=== PATIENT | female | born 1960 | race Caucasian/White ===

== ENCOUNTER 2016-07-30 20:59 | Emergency (ER) | payer OTHER ==
--- NOTE | 2016-07-30 22:50 | DIAGNOSTIC IMAGING REPORT ---
PROCEDURE: XR CHEST 2 VIEW INDICATION: SHORTNESS OF BREATH TECHNIQUE: PA and lateral views. COMPARISON: Para chest x-ray on 09/03/2012. FINDINGS: Lungs are clear. Heart and mediastinum are normal. Thorax is normal. IMPRESSION: 1. Negative chest.
--- NOTE | 2016-07-30 23:09 | ED NURSING NOTES ---
Clinical Report - Nurses [facility] [address] [place] [address] 07/30/2016 21:00 Patient: CORNELIA PIERCE TRIAGE Triage time 21:Jul 30 2016. Acuity: LEVEL 3. Chief Complaint: "ASTHMA ATTACK" and WHEEZING. 21:07 07/30/16. SEPSIS SCREEN: Sepsis Screen: negative. Negative (no infection suspected/documented). --21:07 Nesha Westbrook 21:02 07/30/16. BP: 166/87. HR: 78. RR: 20. O2 saturation: 96% on room air. Temp: 97.9 F (oral). --21:07 Nesha Westbrook 00:28 07/31/16. Pain level now: 0/10. --00:28 Nesha Westbrook. Weight: 72.5 kg stated. Height/Length: 68 inches Per Patient. BMI: 24.3. --21:04 Nesha Westbrook. Medications Atrovent HFA Inhalation. --21:03 Nesha Westbrook. Medication/allergy information source: the patient. --21:07 Nesha Westbrook. Allergies No Known Drug Allergy. --21:03 Nesha Westbrook. History Arrived by EMS. Historian: patient. Primary physician (none). This started just prior to arrival. ( Patient states she has been having come cough and fever over the last three days. She states she has been using her inhaler which she normally doesn't have to use regularly. She reports difficulty breathing tonight at work that was sudden onset.). She has had fever and chills. She has had a cough productive of green sputum. Treatment QUARTER INSPECTOR: None. See EMS report. EMS treatment QUARTER INSPECTOR verbally communicated and report reviewed. See report. BP: 138 / 82. HR: 76. RR: 22 regular. O2 saturation: 97 room air. PAST MEDICAL HX: Immunizations: up-to-date. The patient has had a hysterectomy. SOCIAL HX: Heavy tobacco smoker (cigarette)- 1 pack per day. Alcohol use; consumes three beers a day. No drug use. No infectious disease exposure. ABUSE ASSESSMENT: No report of abuse. FALL RISK ASSESSMENT: Fall risk assessment completed. No fall risk identified. NUTRITIONAL RISK ASSESSMENT: The nutritional risk assessment revealed no deficiencies. FUNCTIONAL ASSESSMENT: Functional assessment: no impairments noted. LEARNING NEEDS ASSESSMENT: The learning needs assessment revealed no barriers. SKIN INTEGRITY ASSESSMENT: Skin integrity risk assessment completed. No skin integrity risk identified. --21:07 Nesha Westbrook. PROBLEMS: Bronchospasm. Dyspnea. COPD - Chronic Obstructive Pulmonary Disease. Bronchitis. Pneumonia. --21:04 Nesha Westbrook. ADDITIONAL SURGERIES: 3 right arm. 3 right ear. Hysterectomy. Oophorectomy. Salpingectomy. Shoulder Surgery. Tonsillectomy. Tubal Ligation. --21:04 Nesha Westbrook. Interventions ID band on patient. To treatment room. --21:07 Nesha Westbrook. PHYSICAL ASSESSMENT To room via stretcher. GENERAL / NEURO / PSYCH: Alert. Oriented X 4. Appears in no acute distress. HEENT: Mucous membranes are pink. RESPIRATORY: Mild respiratory distress. The patient can speak in full sentences. Cough. Expiratory wheezes present. SKIN: Skin is warm and dry. --21:08 Nesha Westbrook. NURSING PROGRESS NOTES The initial plan of care for this patient has been created This plan of care was discussed with the patient. Oxygen administered by nasal cannula at 2 liters. clinical research monitor, pulse oximeter and NIBP monitor placed on patient; monitor alarms on. Patient gowned. Head of bed elevated. Reassurance given to the patient. Two patient identifiers checked. Call light placed in reach. Side rails up x 1. Bed placed in lowest position. Brakes of bed on. Patient ready for evaluation- chart flagged. --21:08 Nesha Westbrook ( RT notified). --21:11 Nesha Westbrook ( Provider at bedside discussing plan of care with patient). --21:26 Nesha Westbrook Patient transported to radiology by stretcher with [employer]. (21:38 Jul 30 2016). --21:39 Nesha Westbrook 21:47 07/30/2016 Duoneb (Ipratropium-Albuterol) Neb TX Nebulizer 1 unit dose given. Given by the respiratory therapist. Allergies verified and confirmed 5 rights. --21:47 Nesha Westbrook 21:47 07/30/2016 Albuterol Neb TX Nebulizer 1 unit dose given. Given by the respiratory therapist. Allergies verified and confirmed 5 rights. --21:47 Nesha Westbrook 21:48 07/30/2016 Site #1 started via IV in the left antecubital space with an 20g angiocath, with aseptic technique and good blood return; one attempt. Blood drawn: rainbow set. Labeled in the presence of the patient and sent to the lab. Saline lock flushed with 10 mL saline. --21:53 Nesha Westbrook 21:48 07/30/2016 Started bag #1 1000 mL IV Fluids IV NS (Saline); at 1000 mL/hr over 1 hour(s) via site #1 via IV pump. Allergies verified and confirmed 5 rights. IV patency established. IV site checked: no pain, redness, or swelling. IV flushed thoroughly pre- and post-medication administration. --21:53 Nesha Westbrook 21:54 07/30/2016 Decadron IVP 20 mg given over 2 minute(s) via site #1. Allergies verified and confirmed 5 rights. IV patency established. IV site checked: no pain, redness, or swelling. IV flushed thoroughly pre- and post-medication administration. IVP given by RN. --21:54 Nesha Westbrook 21:54 07/30/16. BP: 120/67. HR: 73. RR: 20. O2 saturation: 99% on room air. --21:55 Nesha Westbrook ( Patient assisted up to restroom. Patient has some shortness of breath with ambulation but states she does feel better after her breathing treatments). --22:20 Nesha Westbrook 22:37 07/30/2016 Started 2 gm of Rocephin (CefTRIAXone Sodium) IVPB in bag #1 50 mL; at 150 mL/hr over 20 minute(s) via site #1 via IV pump. Allergies verified and confirmed 5 rights. IV patency established. IV site checked: no pain, redness, or swelling. IV flushed thoroughly pre- and post-medication administration. --22:37 Nesha Westbrook 22:38 07/30/2016 Zithromax PO Tablets 500 mg given. Allergies verified and confirmed 5 rights. --22:38 Nesha Westbrook 22:52 07/30/2016 Rocephin IVPB Discontinued: bag #1 completed. Total amount infused: 50 mL. IV patency established. IV site checked: no pain, redness, or swelling. IV flushed thoroughly. --22:52 Kenny Roa R.N. 23:11 07/30/2016 IV Fluids IV NS Discontinued: bag #1 completed. Total amount infused: 1000 mL. IV patency established. IV site checked: no pain, redness, or swelling. IV flushed thoroughly. --23:11 Nesha Westbrook 00:08 07/31/2016 Site #1 removed upon discharge. Catheter intact. Bandaid applied. --00:23 Nesha Westbrook ( Patient resting quietly. Patient cleared for discharge and ready to go when family arrives to drive her.). --00:23 Nesha Westbrook. DISPOSITION / DISCHARGE Condition at departure: stable. ( Provider aware of vitals. Patient cleared for discharge. RN helping patient arrange transportation home.). --23:10 Nesha Westbrook 23:09 07/30/16. BP: 131/90. HR: 87. RR: 22. O2 saturation: 92% on room air. Temp: 98.6 F (oral). Pain level now: 0/10. --23:10 Nesha Westbrook Condition at departure: stable. No learning barriers present. Discharge instructions provided and reviewed with the patient. Reviewed medication(s) side effects, precautions, dosing and course information. Reviewed need for increased fluid intake. Work note given (No work for three days). Patient verbalized understanding. Written instructions provided in Azeri. ( Follow up with PCP in three days). The patient was discharged by the physician. She was discharged home and accompanied by family. She left the Emergency Department ambulatory and via private vehicle. Family member driving. --00:28 Nesha Westbrook 00:27 07/31/16. BP: 130/80. HR: 80. RR: 20. O2 saturation: 93% on room air. --00:28 Nesha Westbrook. Locked/Released at 07/31/2016 4:49 by Nesha Westbrook,
--- NOTE | 2016-07-30 23:09 | ED ORDER SUMMARY ---
..... Patient: CORNELIA PIERCE OrderSheet [facility] VisitID: [id number] [place] [address] 55y, F Registration Date/Time: 07/30/2016 ORDER SHEET Weight: 72.5 kg (stated) Allergies: No Known Drug Allergy GENERAL ORDERS: Chest 2V Urgent (21:07/30/2016 Marian DOMINGUEZ) (21:42 Graciela) (Ack 21:44 NHouse ER Tech1) Rapid Influenza Screen (Nasal Pharyngeal) (swab) Urgent (:07/30/2016 Marian DOMINGUEZ) (Ack 21:44 NHouse ER Tech1) (21:53 NHouse ER Tech1) MEDICATION ORDERS: DuoNeb Neb Tx 1 unit dose (NOW) (:07/30/2016 Marian DOMINGUEZ) (Ack 21:36 HSoule) (21:47 HSoule) Albuterol Neb Tx 2.5 mg (NOW) (:07/30/2016 Marian DOMINGUEZ) (Ack 21:36 HSoule) (21:47 HSoule) Zithromax PO 500 mg (NOW) (:07/30/2016 Marian DOMINGUEZ) (Ack 22:29 HSoule) (22:38 HSoule) IV FLUIDS: IV NS : initial bolus 1000 mL (1000 mL/hr), then none - (NOW) (:07/30/2016 Marian DOMINGUEZ) (Ack 21:36 HSoule) (21:53 HSoule) Decadron IV 20 mg (NOW) (:07/30/2016 Marian DOMINGUEZ) (Ack 21:36 HSoule) (21:54 HSoule) Rocephin IV 2 gm/50mL (NOW) (22:07/30/2016 Marian DOMINGUEZ) (Ack 22:29 HSoule) (22:37 HSoule) ORDER SHEET NOTES: [Electronically signed by Nesha Westbrook (04:49 07/31/2016)] [Electronically signed by Lizett Forman MD (04:32 08/06/2016)] [Electronically locked/signed by Nesha Westbrook (04:49 07/31/2016)]
--- NOTE | 2016-07-30 23:09 | ED NURSING NOTES ---
Clinical Report - Nurses [facility] [address] [place] [address] 07/30/2016 21:00 Patient: CORNELIA PIERCE TRIAGE Triage time 21:Jul 30 2016. Acuity: LEVEL 3. Chief Complaint: "ASTHMA ATTACK" and WHEEZING. 21:07 07/30/16. SEPSIS SCREEN: Sepsis Screen: negative. Negative (no infection suspected/documented). --21:07 Nesha Westbrook 21:02 07/30/16. BP: 166/87. HR: 78. RR: 20. O2 saturation: 96% on room air. Temp: 97.9 F (oral). --21:07 Nesha Westbrook 00:28 07/31/16. Pain level now: 0/10. --00:28 Nesha Westbrook. Weight: 72.5 kg stated. Height/Length: 68 inches Per Patient. BMI: 24.3. --21:04 Nesha Westbrook. Medications Atrovent HFA Inhalation. --21:03 Nesha Westbrook. Medication/allergy information source: the patient. --21:07 Nesha Westbrook. Allergies No Known Drug Allergy. --21:03 Nesha Westbrook. History Arrived by EMS. Historian: patient. Primary physician (none). This started just prior to arrival. ( Patient states she has been having come cough and fever over the last three days. She states she has been using her inhaler which she normally doesn't have to use regularly. She reports difficulty breathing tonight at work that was sudden onset.). She has had fever and chills. She has had a cough productive of green sputum. Treatment SUPPLY CHAIN ASSISTANT: None. See EMS report. EMS treatment SUPPLY CHAIN ASSISTANT verbally communicated and report reviewed. See report. BP: 138 / 82. HR: 76. RR: 22 regular. O2 saturation: 97 room air. PAST MEDICAL HX: Immunizations: up-to-date. The patient has had a hysterectomy. SOCIAL HX: Heavy tobacco smoker (cigarette)- 1 pack per day. Alcohol use; consumes three beers a day. No drug use. No infectious disease exposure. ABUSE ASSESSMENT: No report of abuse. FALL RISK ASSESSMENT: Fall risk assessment completed. No fall risk identified. NUTRITIONAL RISK ASSESSMENT: The nutritional risk assessment revealed no deficiencies. FUNCTIONAL ASSESSMENT: Functional assessment: no impairments noted. LEARNING NEEDS ASSESSMENT: The learning needs assessment revealed no barriers. SKIN INTEGRITY ASSESSMENT: Skin integrity risk assessment completed. No skin integrity risk identified. --21:07 Nesha Westbrook. PROBLEMS: Bronchospasm. Dyspnea. COPD - Chronic Obstructive Pulmonary Disease. Bronchitis. Pneumonia. --21:04 Nesha Westbrook. ADDITIONAL SURGERIES: 3 right arm. 3 right ear. Hysterectomy. Oophorectomy. Salpingectomy. Shoulder Surgery. Tonsillectomy. Tubal Ligation. --21:04 Nesha Westbrook. Interventions ID band on patient. To treatment room. --21:07 Nesha Westbrook. PHYSICAL ASSESSMENT To room via stretcher. GENERAL / NEURO / PSYCH: Alert. Oriented X 4. Appears in no acute distress. HEENT: Mucous membranes are pink. RESPIRATORY: Mild respiratory distress. The patient can speak in full sentences. Cough. Expiratory wheezes present. SKIN: Skin is warm and dry. --21:08 Nesha Westbrook. NURSING PROGRESS NOTES The initial plan of care for this patient has been created This plan of care was discussed with the patient. Oxygen administered by nasal cannula at 2 liters. fiber optic central office installer, pulse oximeter and NIBP monitor placed on patient; monitor alarms on. Patient gowned. Head of bed elevated. Reassurance given to the patient. Two patient identifiers checked. Call light placed in reach. Side rails up x 1. Bed placed in lowest position. Brakes of bed on. Patient ready for evaluation- chart flagged. --21:08 Nesha Westbrook ( RT notified). --21:11 Nesha Westbrook ( Provider at bedside discussing plan of care with patient). --21:26 Nesha Westbrook Patient transported to radiology by stretcher with [employer]. (21:38 Jul 30 2016). --21:39 Nesha Westbrook 21:47 07/30/2016 Duoneb (Ipratropium-Albuterol) Neb TX Nebulizer 1 unit dose given. Given by the respiratory therapist. Allergies verified and confirmed 5 rights. --21:47 Nesha Westbrook 21:47 07/30/2016 Albuterol Neb TX Nebulizer 1 unit dose given. Given by the respiratory therapist. Allergies verified and confirmed 5 rights. --21:47 Nesha Westbrook 21:48 07/30/2016 Site #1 started via IV in the left antecubital space with an 20g angiocath, with aseptic technique and good blood return; one attempt. Blood drawn: rainbow set. Labeled in the presence of the patient and sent to the lab. Saline lock flushed with 10 mL saline. --21:53 Nesha Westbrook 21:48 07/30/2016 Started bag #1 1000 mL IV Fluids IV NS (Saline); at 1000 mL/hr over 1 hour(s) via site #1 via IV pump. Allergies verified and confirmed 5 rights. IV patency established. IV site checked: no pain, redness, or swelling. IV flushed thoroughly pre- and post-medication administration. --21:53 Nesha Westbrook 21:54 07/30/2016 Decadron IVP 20 mg given over 2 minute(s) via site #1. Allergies verified and confirmed 5 rights. IV patency established. IV site checked: no pain, redness, or swelling. IV flushed thoroughly pre- and post-medication administration. IVP given by RN. --21:54 Nesha Westbrook 21:54 07/30/16. BP: 120/67. HR: 73. RR: 20. O2 saturation: 99% on room air. --21:55 Nesha Westbrook ( Patient assisted up to restroom. Patient has some shortness of breath with ambulation but states she does feel better after her breathing treatments). --22:20 Nesha Westbrook 22:37 07/30/2016 Started 2 gm of Rocephin (CefTRIAXone Sodium) IVPB in bag #1 50 mL; at 150 mL/hr over 20 minute(s) via site #1 via IV pump. Allergies verified and confirmed 5 rights. IV patency established. IV site checked: no pain, redness, or swelling. IV flushed thoroughly pre- and post-medication administration. --22:37 Nesha Westbrook 22:38 07/30/2016 Zithromax PO Tablets 500 mg given. Allergies verified and confirmed 5 rights. --22:38 Nesha Westbrook 22:52 07/30/2016 Rocephin IVPB Discontinued: bag #1 completed. Total amount infused: 50 mL. IV patency established. IV site checked: no pain, redness, or swelling. IV flushed thoroughly. --22:52 Kenny Roa R.N. 23:11 07/30/2016 IV Fluids IV NS Discontinued: bag #1 completed. Total amount infused: 1000 mL. IV patency established. IV site checked: no pain, redness, or swelling. IV flushed thoroughly. --23:11 Nesha Westbrook 00:08 07/31/2016 Site #1 removed upon discharge. Catheter intact. Bandaid applied. --00:23 Nesha Westbrook ( Patient resting quietly. Patient cleared for discharge and ready to go when family arrives to drive her.). --00:23 Nesha Westbrook. DISPOSITION / DISCHARGE Condition at departure: stable. ( Provider aware of vitals. Patient cleared for discharge. RN helping patient arrange transportation home.). --23:10 Nesha Westbrook 23:09 07/30/16. BP: 131/90. HR: 87. RR: 22. O2 saturation: 92% on room air. Temp: 98.6 F (oral). Pain level now: 0/10. --23:10 Nesha Westbrook Condition at departure: stable. No learning barriers present. Discharge instructions provided and reviewed with the patient. Reviewed medication(s) side effects, precautions, dosing and course information. Reviewed need for increased fluid intake. Work note given (No work for three days). Patient verbalized understanding. Written instructions provided in Khmer. ( Follow up with PCP in three days). The patient was discharged by the physician. She was discharged home and accompanied by family. She left the Emergency Department ambulatory and via private vehicle. Family member driving. --00:28 Nesha Westbrook 00:27 07/31/16. BP: 130/80. HR: 80. RR: 20. O2 saturation: 93% on room air. --00:28 Nesha Westbrook. Locked/Released at 07/31/2016 4:49 by Nesha Westbrook,
--- NOTE | 2016-07-30 23:09 | ED CLINICAL REPORT ---
Clinical Report - Physicians/Mid Levels [facility] [address] [place] [address] 07/30/2016 21:00 Patient: CORNELIA PIERCE Time Seen: 21:20. Arrived- By private vehicle. Historian- patient. HISTORY OF PRESENT ILLNESS Chief Complaint: DYSPNEA and HISTORY OF ASTHMA. This started today and is still present. The dyspnea is described as moderate and is worsened by exertion and cough and is improved by rest. The patient has had sputum production, a cough, fever, wheezing and chills. She has had dyspnea on exertion. No sweating episodes, chest pain or discomfort, calf pain or foot swelling. No anxiety, dizziness, tingling, numbness or palpitations. Similar symptoms previously: Recent medical care: Not recently seen/assessed. REVIEW OF SYSTEMS The patient has had a nasal discharge and a sore throat but not had weight loss. No muscle aches, eye irritation, sinus drainage, nausea or vomiting. No abdominal pain, diarrhea, headache, fainting episodes or blurred vision. No difficulty with urination, excessive urination, skin rash, enlarged lymph nodes or joint pain. All systems otherwise negative, except as recorded above. PAST HISTORY Problems: Immunizations. COPD - Chronic Obstructive Pulmonary Disease. Additional Surgeries: 3 right arm. 3 right ear. Hysterectomy. Oophorectomy. Salpingectomy. Shoulder Surgery. Tonsillectomy. Tubal Ligation. Medications: Atrovent HFA Inhalation. Allergies: No Known Drug Allergy. SOCIAL HISTORY Smoker- current status unknown. Alcohol use. No drug use. ADDITIONAL NOTES The nursing notes have been reviewed. PHYSICAL EXAM Vital Signs: 07/30/2016 21:02 BP: 166/87. HR: 78. RR: 20. O2 saturation: 96%. Temp: 97.9 F. Have been reviewed. Appearance: Alert. Patient in mild distress. Eyes: Pupils equal, round and reactive to light. Eyes normal inspection. ENT: Nose normal. Neck: Normal inspection. Neck supple. CVS: Normal heart rate and rhythm. Heart sounds normal. Pulses normal. Respiratory: Mild respiratory distress. Mildly prolonged expirations. Moderately decreased air movement diffusely over both lungs. Expiratory moderate bilateral wheezes diffusely. Abdomen: Soft and nontender. Back: Normal inspection. Skin: Skin warm and dry. Normal skin color. No rash. Normal skin turgor. Extremities: Extremities exhibit normal ROM. No lower extremity edema. Neuro: Oriented X 3. No motor deficit. No sensory deficit. LABS, X-RAYS, AND EKG Chest X-ray: Possible small, patchy infiltrate in the left lower lobe. Consistent with pneumonia. Normal heart size. Mediastinum normal. Great vessels normal. Soft tissues normal. No fracture. No bony lesion present. Views: PA and lateral. Technique: good. The X-rays were independently viewed by me and interpreted contemporaneously by me. Prior films were not available for comparison. Laboratory Tests: Rapid Influenza Screen: (EJ: 07/30/2016 21:50) ( MsgRcvd 07/30/2016 22:12) Final results SPECIMEN DESCRIPTION: SWAB Test Result Flag Units (Reference) RAPID INFLUENZA SCREEN DATE: 07/30/16 INFLUENZA A: NEGATIVE SCREEN FOR INFLUENZA A INFLUENZA B: NEGATIVE SCREEN FOR INFLUENZA B . Pulse Oximetry: 07/30/2016 21:02 O2 saturation: 96%. (FIO2 - room air). Interpretation: normal. PROGRESS AND PROCEDURES Course of Care: Pt was evaluated by me, immediately upon arrival in the ED. RT was summoned, and pt was given a duoneb, followed by an albuterol neb, as well as given a dose of Decadron IV. CXR showed what appeared to be an infiltrate, so pt was also given Rocephin and Zithromax. Critical care performed (30 minutes). Time is exclusive of separately billable procedures. Time includes: direct patient care, patient reassessment, coordination of patient care, interpretation of data (pulse oximetry, chest xrays and cardiac output measurements), review of patient's medical records and documentation of patient care- see progress notes. The patient required critical care due to the acute impairment of vital organ systems (respiratory) and a high probability of imminent and life threatening deterioration. Multiple emergent and urgent interventions were required to prevent sudden life threatening deterioration. Patient counseled in person regarding the patient's stable condition, test results, diagnosis and need for follow-up. Concerns were addressed. Old medical records reviewed. Disposition: Discharged. Condition: stable and improved. CLINICAL IMPRESSION Acute viral and bacterial bronchitis associated with chronic obstructive pulmonary disease. Acute exacerbation of COPD. Bacterial pneumonia. Vital signs recorded and reviewed; empiric antibiotics given in the ED. No hypoxemia, respiratory failure or sepsis. INSTRUCTIONS Do not work for three days. Do not smoke. Seek medical help to quit smoking. Warnings: GENERAL WARNINGS: Return or contact your physician immediately if your condition worsens or changes unexpectedly, if not improving as expected, or if other problems arise. Your Current Medications: CONTINUE TAKING THE FOLLOWING MEDICATIONS: Atrovent HFA Inhalation. Prescription Medications: Albuterol HFA oral inhaler: inhale 2 puffs every 4 hours as needed for wheezing, difficulty breathing or shortness of breath. Dispense one (1) unit. No refill. Prednisone 20 mg: take 3 orally every day for 5 days. Dispense sufficient quantity. No refills. Zithromax Z-Ruben: Take according to package instructions 2 orally today, followed by 1 orally every day for the next 4 days. Total course 5 days. No refills. Substitution is permissible. Follow-up: Follow up with your doctor in seven days if not better. Understanding of the discharge instructions verbalized by patient. (Electronically signed by Lizett Forman MD 08/06/2016 4:32)
--- NOTE | 2016-07-30 23:09 | ED ORDER SUMMARY ---
..... Patient: CORNELIA PIERCE OrderSheet [facility] VisitID: [id number] [place] [address] 55y, F Registration Date/Time: 07/30/2016 ORDER SHEET Weight: 72.5 kg (stated) Allergies: No Known Drug Allergy GENERAL ORDERS: Chest 2V Urgent (21:07/30/2016 Marian DOMINGUEZ) (21:42 Graciela) (Ack 21:44 NHouse ER Tech1) Rapid Influenza Screen (Nasal Pharyngeal) (swab) Urgent (:07/30/2016 Marian DOMINGUEZ) (Ack 21:44 NHouse ER Tech1) (21:53 NHouse ER Tech1) MEDICATION ORDERS: DuoNeb Neb Tx 1 unit dose (NOW) (:07/30/2016 Marian DOMINGUEZ) (Ack 21:36 HSoule) (21:47 HSoule) Albuterol Neb Tx 2.5 mg (NOW) (:07/30/2016 Marian DOMINGUEZ) (Ack 21:36 HSoule) (21:47 HSoule) Zithromax PO 500 mg (NOW) (:07/30/2016 Marian DOMINGUEZ) (Ack 22:29 HSoule) (22:38 HSoule) IV FLUIDS: IV NS : initial bolus 1000 mL (1000 mL/hr), then none - (NOW) (:07/30/2016 Marian DOMINGUEZ) (Ack 21:36 HSoule) (21:53 HSoule) Decadron IV 20 mg (NOW) (:07/30/2016 Marian DOMINGUEZ) (Ack 21:36 HSoule) (21:54 HSoule) Rocephin IV 2 gm/50mL (NOW) (22:07/30/2016 Marian DOMINGUEZ) (Ack 22:29 HSoule) (22:37 HSoule) ORDER SHEET NOTES: [Electronically signed by Nesha Westbrook (04:49 07/31/2016)] [Electronically signed by Lizett Forman MD (04:32 08/06/2016)] [Electronically locked/signed by Nesha Westbrook (04:49 07/31/2016)]
--- NOTE | 2016-08-06 04:33 | ED MAR SUMMARY ---
..... Medication Administration Record [facility] [address] [place] [address] Patient: CORNELIA PIERCE Visit ID: [id number] 55y, F Weight: 72.5 kg Height/Length: 68 in BMI: 24.3 ALLERGIES: No Known Drug Allergy Given 21:47 07/30/2016 Nesha Westbrook, Medication Administered: DUONEB [NEB TX] (IPRATROPIUM-ALBUTEROL), Dose: 1 unit dose Nebulizer Neb TX. Medication Ordered: DuoNeb Neb Tx 1 unit dose (NOW). Given 21:47 07/30/2016 Nesha Westbrook, Medication Administered: ALBUTEROL [NEB TX], Dose: 1 unit dose Nebulizer Neb TX. Medication Ordered: Albuterol Neb Tx 2.5 mg (NOW). Start 21:48 07/30/2016 Nesha Westbrook,, Stop 23:11 07/30/2016 Nesha Westbrook, Medication Administered: IV NS (SALINE), Dose: IV Fluids over 1 hour(s), Rate: 1000 mL/hr, Dispensed: 1000 mL bag, Site: #1 left AC. Medication Ordered: IV NS : initial bolus 1000 mL (1000 mL/hr), then none - (NOW). Given 21:54 07/30/2016 Nesha Westbrook, Medication Administered: DECADRON [IVP], Dose: 20 mg IVP over 2 minute(s), Site: #1 left AC. Medication Ordered: Decadron IV 20 mg (NOW). Start 22:37 07/30/2016 Nesha Westbrook,, Stop 22:52 07/30/2016 Kenny Roa R.N. Medication Administered: ROCEPHIN [IVPB] (CEFTRIAXONE SODIUM), Dose: 2 gm IVPB over 20 minute(s), Rate: 150 mL/hr, Dispensed: 50 mL bag, Site: #1 left AC. Medication Ordered: Rocephin IV 2 gm/50mL (NOW). Given 22:38 07/30/2016 Nesha Westbrook, Medication Administered: ZITHROMAX [PO], Dose: 500 mg Tablets PO. Medication Ordered: Zithromax PO 500 mg (NOW).
--- NOTE | 2016-08-06 04:33 | ED MED RECONCILIATION SUMMARY ---
Patient: AVNIWADE CORNELIA Medication Reconciliation Report [facility] VisitID: [id number] [place] [address] 55y, F Registration Date/Time: 07/30/2016 Weight: 72.5 kg Height/Length: 68 in. BMI: 24.3 ALLERGIES: No Known Drug Allergy The patient's Home Medications are listed below: CONTINUE TAKING THE FOLLOWING MEDICATIONS: Atrovent HFA Inhalation The source(s) of the original Home Medication information: patient The following Medications were given to the patient in the Emergency Department: Duoneb [Neb Tx] Neb TX 1 unit dose, administered: 07/30/2016 9:47:00 PM Albuterol [Neb Tx] Neb TX 1 unit dose, administered: 07/30/2016 9:47:00 PM IV NS IV Fluids bolus 0, then 1000 mL/hr, administered: 07/30/2016 9:48:00 PM Decadron [IVP] IVP 20 mg, administered: 07/30/2016 9:54:00 PM Rocephin [IVPB] IVPB bolus 0, then 2 gm 150 mL/hr, administered: 07/30/2016 10:37:00 PM Zithromax [PO] PO 500 mg, administered: 07/30/2016 10:38:00 PM The following Medications were prescribed to the patient: Albuterol HFA oral inhaler: inhale 2 puffs every 4 hours as needed for wheezing, difficulty breathing or shortness of breath. Dispense one (1) unit. No refill. -- Lizett Forman MD Prednisone 20 mg: take 3 orally every day for 5 days. Dispense sufficient quantity. No refills. -- Lizett Forman MD Zithromax Z-Ruben: Take according to package instructions 2 orally today, followed by 1 orally every day for the next 4 days. Total course 5 days. No refills. Substitution is permissible. -- Lizett Forman MD
--- NOTE | 2016-08-06 04:33 | ED DISCHARGE INSTRUCTIONS ---
Patient: CORNELIA PIERCE General Instructions [facility] VisitID: [id number] [place] [address] 55y, F Registration Date/Time: 07/30/2016 Acute viral and bacterial bronchitis associated with chronic obstructive pulmonary disease. Acute exacerbation of COPD. Bacterial pneumonia. Vital signs recorded and reviewed; empiric antibiotics given in the ED. No hypoxemia, respiratory failure or sepsis. INSTRUCTIONS Do not work for three days. Do not smoke. Seek medical help to quit smoking. Warnings: GENERAL WARNINGS: Return or contact your physician immediately if your condition worsens or changes unexpectedly, if not improving as expected, or if other problems arise. Your Current Medications: CONTINUE TAKING THE FOLLOWING MEDICATIONS: Atrovent HFA Inhalation. Prescription Medications: Albuterol HFA oral inhaler: inhale 2 puffs every 4 hours as needed for wheezing, difficulty breathing or shortness of breath. Dispense one (1) unit. No refill. Prednisone 20 mg: take 3 orally every day for 5 days. Dispense sufficient quantity. No refills. Zithromax Z-Ruben: Take according to package instructions 2 orally today, followed by 1 orally every day for the next 4 days. Total course 5 days. No refills. Substitution is permissible. Follow-up: Follow up with your doctor in seven days if not better. Understanding of the discharge instructions verbalized by patient. ADDITIONAL INFORMATION COPD Flare Both emphysema and chronic bronchitis are forms of chronic obstructive pulmonary disease (COPD). It is most often caused by many years of smoking tobacco. Many things can make your lung disease suddenly get worse. These causes include the common cold, pneumonia, acute bronchitis, missing doses of your regular breathing medicines, or being around smoke, dust, or other air pollutants. A COPD flare may last 7 to 14 days. Your doctor may prescribe medicineto relax your airways and prevent wheezing. Your doctor may also prescribe antibiotics if he or she thinks you havea bacterial infection. Prednisone can helpease inflammation in a severe attack. Home care Here are things you can do at home: Drink lots of water or other fluids (at least 10 glasses a day) during an attack. This will loosen lung secretions and make it easier to breathe. If you have heart or kidney disease, check with your doctor before you drink extra amounts of fluids. Take prescribed medicine exactly at the times advised. If you have a hand-held inhaler or aerosol breathing medicine, don't use it more than once every 4 hours, unless your doctor tells you to. If you were givenan antibiotic or prednisone, take all of the medicine even if you are feeling better after a few days. Don't smoke. Avoid being aroundthe smoke of others. If you were given an inhaler, use it exactly as directed. If you need to use it more often than prescribed, your condition may be getting worse. Call your doctor. Follow-up care Follow up with your health care provider.If you are 65 or older or have chronic asthma or COPD, you should get a single dose of the pneumococcal vaccine and aflu shot each year. You may need a second dose of the pneumococcal vaccine if you had the first dose at a younger age. Your health care provider will let you know if you need a second dose. For all other people, the usual dose for the pneumococcal vaccine is 1 or 2 shots. Yourprovider can discuss this with you. When to seek medical care Get prompt medical attention ifany of these occur: Increased wheezing or shortness of breath Need to use your inhalers more often than usual without relief Fever of 100.4F(38C) or higher, or as directed by your health care provider Coughing up lots of dark-colored or bloody sputum (mucus) Chest pain with each breath You do not start to improve within 24 hours Pneumonia (Adult) Pneumonia is an infection deep within the lung, in the small air sacs (alveoli). It may be due to a virus or bacteria and is usually treated with an antibiotic. Severe cases require treatment in the hospital. Milder cases can be treated at home. Symptoms usually start to improve during the first2 days of treatment. Home Care: Rest at home for the first 23 days or until you feel stronger. When resuming activity, dont let yourself become overly tired. Avoid exposure to cigarette smoke (yours or others). You may use acetaminophen (Tylenol) or ibuprofen (Motrin, Advil) to control fever or pain, unless another medicine was prescribed. [NOTE: If you have chronic liver or kidney disease or ever had a stomach ulcer or GI bleeding, talk with your doctor before using these medicines.] (Aspirin should never be used in anyone under 18 years of age who is ill with a fever. It may cause severe liver damage.) Your appetite may be poor so a light diet is fine. Keep well hydrated by drinking 68 glasses of fluids per day (water, sport drinks such as Gatorade, sodas without caffeine, juices, tea, soup, etc.). This will help loosen secretions in the lung, making it easier for you to cough up the phlegm (sputum). If you also have heart or kidney disease, check with your doctor before you drink extra amounts of fluids. Finish all antibiotic medicine prescribed, even if you are feeling better after a few days. Follow Up with your doctor in the next 23 days (or as advised) to be sure you are responding properly to the medicine. [NOTE: If you are age 65 or older, or if you have chronic lung disease (asthma, emphysema or COPD), we recommendthe pneumococcal vaccination and a yearlyinfluenzavaccination(flu-shot) every . Ask your doctor about this.] Get Prompt Medical Attention if any of the following occur: Not getting better within the first 48 hours of treatment Increasing shortness of breath or rapid breathing (over 25 breaths/minute) Coughing up blood or increasing chest pain with breathing Fever of 100.4F (38C) oral or higher, not better with fever medication Increasing weakness, dizziness or fainting Increasing thirst or dry mouth Sinus pain, headache or a stiff neck Chest pain not caused by coughing How To Quit Smoking Smoking is one of the hardest habits to break. About half of all those who have ever smoked have been able to quit, and most of those (about 70%) who still smoke want to quit. Here are some of the best ways to stop smoking. Keep Trying: It takes most smokers about 8 tries before they are finally able to fully quit. So, the more often you try and fail, the better your chance of quitting the next time! So, don't give up! Go Cold [place]: Most ex-smokers quit cold turkey. Trying to cut back gradually doesn't seem to work as well, perhaps because it continues the smoking habit. Also, it is possible to fool yourself by inhaling more while smoking fewer cigarettes. This results in the same amount of nicotine in your body! Get Support: Support programs can make an important difference, especially for the heavy smoker. These groups offer lectures, methods to change your behavior and peer support. Call the free national Quitline for more information. 884-IQXD-IKR (967-813-0398). Low-cost or free programs are offered by many hospitals, local chapters of the [place] [employer] (870-321-0862) and the [employer] (859-009-7011). Support at home is important too. Non-smokers can help by offering praise and encouragement. If the smoker fails to quit, encourage them to try again! Yhpu-Ocn-Bsealvs Medicines: For those who can't quit on their own, Nicotine Replacement Therapy (NRT) may make quitting much easier. Certain aids such as the nicotine patch, gum and lozenge are available without a prescription. However, it is best to use these under the guidance of your doctor. The skin patch provides a steady supply of nicotine to the body. Nicotine gum and lozenge gives temporary bursts of low levels of nicotine. Both methods take the edge off the craving for cigarettes. WARNING: If you feel symptoms of nicotine overdose, such as nausea, vomiting, dizziness, weakness, or fast heartbeat, stop using these and see your doctor. Prescription Medicines: After evaluating your smoking patterns and prior attempts at quitting, your doctor may offer a prescription medicine such as bupropion (Zyban, Wellbutrin), varenicline (Chantix, Champix), a niocotine inhaler or nasal spray. Each has its unique advantage and side effects which your doctor can review with you. Health Benefits Of Quitting: The benefits of quitting start right away and keep improving the longer you go without smokin minutes: blood pressure and pulse return to normal 8 hours: oxygen levels return to normal 2 days: ability to smell and taste begins to improve as damaged nerves start to regrow 2-3 weeks: circulation and lung function improves 1-9 months: decreased cough, congestion and shortness of breath; less tired 1 year: risk of heart attack decreases by half 5 years: risk of lung cancer decreases by half; risk of stroke becomes the same as a non-smoker For information about how to quit smoking, visit the following links: National Cancer [place] , Clearing the Air, Quit Smoking Today - an online booklet. http://www.smokefree.gov/pubs/clearing_the_air.pdf Smokefree.gov http://smokefree.gov/ QuitNet http://www.quitnet.com/ You have been given the following additional information: COPD Flare Pneumonia (Adult) Smoking Cessation Do not work for three days. (Electronically signed by Lizett Forman MD 08/06/2016 4:32)
--- NOTE | 2016-08-06 04:33 | ED MED RECONCILIATION SUMMARY ---
Patient: AVNIWADE CORNELIA Medication Reconciliation Report [facility] VisitID: [id number] [place] [address] 55y, F Registration Date/Time: 07/30/2016 Weight: 72.5 kg Height/Length: 68 in. BMI: 24.3 ALLERGIES: No Known Drug Allergy The patient's Home Medications are listed below: CONTINUE TAKING THE FOLLOWING MEDICATIONS: Atrovent HFA Inhalation The source(s) of the original Home Medication information: patient The following Medications were given to the patient in the Emergency Department: Duoneb [Neb Tx] Neb TX 1 unit dose, administered: 07/30/2016 9:47:00 PM Albuterol [Neb Tx] Neb TX 1 unit dose, administered: 07/30/2016 9:47:00 PM IV NS IV Fluids bolus 0, then 1000 mL/hr, administered: 07/30/2016 9:48:00 PM Decadron [IVP] IVP 20 mg, administered: 07/30/2016 9:54:00 PM Rocephin [IVPB] IVPB bolus 0, then 2 gm 150 mL/hr, administered: 07/30/2016 10:37:00 PM Zithromax [PO] PO 500 mg, administered: 07/30/2016 10:38:00 PM The following Medications were prescribed to the patient: Albuterol HFA oral inhaler: inhale 2 puffs every 4 hours as needed for wheezing, difficulty breathing or shortness of breath. Dispense one (1) unit. No refill. -- Lizett Forman MD Prednisone 20 mg: take 3 orally every day for 5 days. Dispense sufficient quantity. No refills. -- Lizett Forman MD Zithromax Z-Ruben: Take according to package instructions 2 orally today, followed by 1 orally every day for the next 4 days. Total course 5 days. No refills. Substitution is permissible. -- Lizett Forman MD
--- NOTE | 2016-08-06 04:33 | ED MAR SUMMARY ---
..... Medication Administration Record [facility] [address] [place] [address] Patient: CORNELIA PIERCE Visit ID: [id number] 55y, F Weight: 72.5 kg Height/Length: 68 in BMI: 24.3 ALLERGIES: No Known Drug Allergy Given 21:47 07/30/2016 Nesha Westbrook, Medication Administered: DUONEB [NEB TX] (IPRATROPIUM-ALBUTEROL), Dose: 1 unit dose Nebulizer Neb TX. Medication Ordered: DuoNeb Neb Tx 1 unit dose (NOW). Given 21:47 07/30/2016 Nesha Westbrook, Medication Administered: ALBUTEROL [NEB TX], Dose: 1 unit dose Nebulizer Neb TX. Medication Ordered: Albuterol Neb Tx 2.5 mg (NOW). Start 21:48 07/30/2016 Nesha Westbrook,, Stop 23:11 07/30/2016 Nesha Westbrook, Medication Administered: IV NS (SALINE), Dose: IV Fluids over 1 hour(s), Rate: 1000 mL/hr, Dispensed: 1000 mL bag, Site: #1 left AC. Medication Ordered: IV NS : initial bolus 1000 mL (1000 mL/hr), then none - (NOW). Given 21:54 07/30/2016 Nesha Westbrook, Medication Administered: DECADRON [IVP], Dose: 20 mg IVP over 2 minute(s), Site: #1 left AC. Medication Ordered: Decadron IV 20 mg (NOW). Start 22:37 07/30/2016 Nesha Westbrook,, Stop 22:52 07/30/2016 Kenny Roa R.N. Medication Administered: ROCEPHIN [IVPB] (CEFTRIAXONE SODIUM), Dose: 2 gm IVPB over 20 minute(s), Rate: 150 mL/hr, Dispensed: 50 mL bag, Site: #1 left AC. Medication Ordered: Rocephin IV 2 gm/50mL (NOW). Given 22:38 07/30/2016 Nesha Westbrook, Medication Administered: ZITHROMAX [PO], Dose: 500 mg Tablets PO. Medication Ordered: Zithromax PO 500 mg (NOW).
== END 2016-07-30 23:15 | disposition home or self-care (01) ==
LOC: ED SRH 20:59
DX: J44.1 Chronic obstructive pulmonary disease with (acute) exacerbation (principal); J20.8 Acute bronchitis due to other specified organisms; J15.9 Unspecified bacterial pneumonia; F17.210 Nicotine dependence, cigarettes, uncomplicated
CPT/HCPCS: 91400

== ENCOUNTER 2016-08-18 15:29 | Outpatient (CLI) | payer OTHER ==
--- NOTE | 2016-08-18 16:42 | DIAGNOSTIC IMAGING REPORT ---
PROCEDURE: XR THORACIC SPINE 3 VIEWS INDICATION: PAIN IN THORACIC SPINE TECHNIQUE: Three views. COMPARISON: None. FINDINGS: Osseous structures and disc spaces are normal. No evidence of an acute process or fracture. IMPRESSION: 1. Negative thoracic spine.
--- NOTE | 2016-08-18 16:47 | DIAGNOSTIC IMAGING REPORT ---
PROCEDURE: XR CERVICAL SPINE 2 OR 3 VIEW INDICATION: PAIN IN THORACIC SPINE TECHNIQUE: Three views. COMPARISON: None. FINDINGS: Mild spondylosis C4-5 C5-6 and C6-7. Small posterior osteophytic ridges are present at C4-5 and C5-6. No evidence of an acute process or fracture. IMPRESSION: 1. Spondylosis C4-5, C5-6, and C6-7. Small posterior osteophytic ridges at C4-5 and C5-6.
== END 2016-08-18 23:00 ==
LOC: XR SRH 15:29
DX: M47.812 Spondylosis without myelopathy or radiculopathy, cervical region (principal)

== ENCOUNTER 2017-02-05 17:01 | Outpatient (CLI) | payer OTHER ==
--- NOTE | 2017-02-05 17:39 | DIAGNOSTIC IMAGING REPORT ---
PROCEDURE: XR LUMBAR SPINE 2 OR 3 VIEWS INDICATION: LOW BACK PX TECHNIQUE: Three views. COMPARISON: None. FINDINGS: Mild spondylosis L4-5. No evidence of an acute process or fracture. IMPRESSION: 1. Mild spondylosis L4-5
== END 2017-02-05 23:00 ==
LOC: XR SRH 17:01
DX: M47.816 Spondylosis without myelopathy or radiculopathy, lumbar region (principal)